=== PATIENT | female | born 1935 | race Caucasian/White ===

== ENCOUNTER 2018-02-27 13:34 | Emergency (ER) | payer OTHER ==
[~2018-02-27] VITALS: Ht 152.4 cm; Wt 45.4 kg
[2018-02-27 14:08] VITALS: BP 157/68
== END 2018-02-27 17:29 | disposition home or self-care (01) ==
LOC: ER 13:38
DX: L03.115 Cellulitis of right lower limb (principal)
CPT/HCPCS: 73620